=== PATIENT | male | born 1965 | race Two or more races ===

== ENCOUNTER 2022-08-04 07:12 | Outpatient (CLI) | payer OTHER | END 2022-08-04 07:16 | disposition home or self-care (01) | LOC: NUCLEAR 07:12 | PROVIDERS: ATTEND Internal Medicine | DX: I25.10 Atherosclerotic heart disease of native coronary artery without angina pectoris (principal); I10 Essential (primary) hypertension; Z13.6 Encounter for screening for cardiovascular disorders; E66.9 Obesity, unspecified; Z82.49 Family history of ischemic heart disease and other diseases of the circulatory system; R06.00 Dyspnea, unspecified; G47.33 Obstructive sleep apnea (adult) (pediatric); E55.9 Vitamin D deficiency, unspecified; N40.0 Benign prostatic hyperplasia without lower urinary tract symptoms; Z53.1 Procedure and treatment not carried out because of patient's decision for reasons of belief and group pressure | CPT/HCPCS: 78452; 93017; A9500 ==